=== PATIENT | female | born 1990 | race Caucasian/White ===

== ENCOUNTER 2017-10-09 18:12 | Inpatient (IN) | payer MEDICAID ==
--- NOTE | 2017-10-09 19:36 | ED PDOC ---
Arrival/HPI - General Chief Complaint: Breast Problem Time Seen by Provider: 10/09/17 19:33 Historian: Patient, Parent - History of Present Illness Narrative History of Present Illness (Text): 10/09/17 19:36 This 27 yo female who denies pmh presents to this ED c/o right breast infection x 3 days. Patient stated that nipple piercing area got infected. Patient stated infection got worse, so she saw her PMD 2 days ago. Patient was prescribed Clindamycin, which she has been taking as instructed. Patient stated pain worsen today. Denies other complains. Time/Duration: Other (see hpi) Quality: Aching Context: Home Past Medical History - Provider Review Nursing Documentation Reviewed: Yes - Cardiac Hx Cardiac Disorders: No - Pulmonary Hx Respiratory Disorders: No - Neurological Hx Neurological Disorder: No - HEENT Hx HEENT Disorder: No - Renal Hx Renal Disorder: No - Endocrine/Metabolic Hx Endocrine Disorders: No - Hematological/Oncological Hx Blood Disorders: No - Integumentary Hx Dermatological Disorder: Yes Other/Comment: ABSCESS - Musculoskeletal/Rheumatological Hx Musculoskeletal Disorders: No - Gastrointestinal Hx Gastrointestinal Disorders: No - Genitourinary/Gynecological Hx Genitourinary Disorders: No - Psychiatric Hx Psychophysiologic Disorder: No Hx Substance Use: No - Anesthesia Hx Anesthesia: No Family/Social History - Physician Review Nursing Documentation Reviewed: Yes Family/Social History: Other (noncontributory) Smoking Status: Never Smoked Hx Alcohol Use: Yes Frequency of alcohol use: Socially Hx Substance Use: No Allergies/Home Meds Allergies/Adverse Reactions: Allergies No Known Allergies Allergy (Verified 10/09/17 18:59) Home Medications: Home Meds Medication Instructions Recorded Confirmed Clindamycin [Cleocin] 300 mg PO Q6 10/09/17 10/09/17 traMADol/Acetaminophen [Ultracet 1 tab PO Q6 PRN 10/09/17 10/09/17 37.5/325 mg] Review of Systems - Review of Systems Constitutional: Normal. absent: Fatigue, Weight Change, Fevers, Night Sweats Eyes: Normal ENT: Normal Respiratory: Normal Cardiovascular: Normal Gastrointestinal: Normal Genitourinary Female: Normal Musculoskeletal: Normal Skin: Abscess (right breast/nipple infection) Neurological: Normal Endocrine: Normal Hemo/Lymphatic: Normal Psychiatric: Normal Physical Exam Vital Signs Temp Pulse Resp BP Pulse Ox 10/09/17 20:22 98 H 18 131/87 98 10/09/17 19:01 99.6 F 109 H 16 130/86 98 Temperature: Afebrile Blood Pressure: Normal Pulse: Regular Respiratory Rate: Normal Appearance: Positive for: Well-Appearing, Non-Toxic, Comfortable Pain Distress: None Mental Status: Positive for: Alert and Oriented X 3 - Systems Exam Head: Present: Atraumatic, Normocephalic Pupils: Present: PERRL Extroacular Muscles: Present: EOMI Conjunctiva: Present: Normal Mouth: Present: Moist Mucous Membranes Neck: Present: Normal Range of Motion Respiratory/Chest: Present: Clear to Auscultation, Good Air Exchange. No: Respiratory Distress, Accessory Muscle Use, Wheezes Cardiovascular: Present: Regular Rate and Rhythm, Normal S1, S2. 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 No: Axillary Lymphad Back: Present: Normal Inspection Upper Extremity: Present: Normal Inspection, Normal ROM Lower Extremity: Present: Normal Inspection, Normal ROM Neurological: Present: GCS=15, CN II-XII Intact, Speech Normal Skin: Present: Warm, Dry, Normal Color. No: Rashes Psychiatric: Present: Alert, Oriented x 3, Normal Insight, Normal Concentration Medical Decision Making ED Course and Treatment: 10/09/17 20:[address] Liz szymanski physician and medical staff physician regrading patient with breast abscess, and cellulitis. He agreed with plan for admission on [facility] 10/09/17 20:44 Patient agreed with plan for admission to this hospital . Re-evaluation Time: 20:45 Reassessment Condition: Re-examined, Improving,but remains with symptoms - Lab Interpretations Lab Results: 10/09/17 20:05 10/09/17 20:05 Lab Results 10/09/17 20:05: Urine Color Yellow, Urine Appearance Clear, Urine pH 6.0, Ur Specific [place] 1.020, Urine Protein Negative, Urine Glucose (UA) Negative, Urine Ketones Negative, Urine Blood Trace-intact H, Urine Nitrate Negative, Urine Bilirubin Negative, Urine Urobilinogen 0.2, Ur Leukocyte Esterase Negative , Urine RBC 0 - 2, Urine WBC Negative, Ur Epithelial Cells None, Urine Bacteria Small, Urine HCG, Qual Negative 10/09/17 20:05: pO2 34, VBG pH 7.35, VBG pCO2 55.0, VBG HCO3 30.4 H, VBG Total CO2 32.1 H, VBG O2 Sat (Calc) 70.1 H, VBG Base Excess 3.4 H, VBG Potassium 4.3, Sodium 135.0, Chloride 101.0, Glucose 105, Lactate 0.7, FiO2 21.0, Venous Blood Potassium 4.3 10/09/17 20:05: PT 12.0, INR 1.05, APTT 32.2 10/09/17 20:05: Sodium 137, Chloride 97 L, Potassium 4.2, Carbon Dioxide 28, Anion Gap 16, BUN 12, Creatinine 0.7, Est GFR ( Amer) > 60, Est GFR (Non- Af Amer) > 60, Random Glucose 108, Calcium 9.6, Phosphorus 3.8, Magnesium 2.0, Total Bilirubin 0.3, AST 30, ALT 37, Alkaline Phosphatase 83, Total Protein 8.3 , Albumin 4.4, Globulin 3.9, Albumin/Globulin Ratio 1.1 10/09/17 20:05: WBC 12.0 H, RBC 4.25, Hgb 13.2, Hct 39.3, MCV 92.5, MCH 31.1, MCHC 33.6, RDW 12.7, Plt Count 240, MPV 11.0, Gran % 77.4 H, Lymph % (Auto) 15.9 L, Rice % (Auto) 5.7, Eos % (Auto) 0.8 L, Baso % (Auto) 0.2, Gran # 9.29 H , Lymph # (Auto) 1.9, Rice # (Auto) 0.7 H, Eos # (Auto) 0.1, Baso # (Auto) 0.02 , ESR Pending I have reviewed the lab results: Yes Interpretation: Abnormal lab values - RAD Interpretation Narrative RAD Interpretations (Text): 10/09/17 20:45 Chest x-rays: NAD. No FB Radiology Orders: 10/09/17 19:33 CHEST TWO VIEWS (PA/LAT) [RAD] Stat - Medication Orders Current Medication Orders: Vancomycin HCl (Vancomycin 1gm) 1 gm in 250 mls @ 167 mls/hr IVPB STAT STA PRN Reason: Protocol Stop: 10/09/17 21:08 Discontinued Medications Sodium Chloride (Sodium Chloride 0.9%) 1,000 mls @ 999 mls/hr IV .Q1H1M STA Stop: 10/09/17 20:39 Piperacillin Sod/Tazobactam Sod (Zosyn 3.375 In Ns 100ml) 100 mls @ 200 mls/hr IVPB STAT STA PRN Reason: Protocol Stop: 10/09/17 20:12 Morphine Sulfate (Morphine) 2 mg IVP STAT STA Stop: 10/09/17 19:47 Ondansetron HCl (Zofran Inj) 4 mg IVP STAT STA Stop: 10/09/17 19:45 Disposition/Present on Arrival - Present on Arrival Any Indicators Present on Arrival: No History of DVT/PE: No History of Uncontrolled Diabetes: No Urinary Catheter: No History of Decub. Ulcer: No History Surgical Site Infection Following: None - Disposition Have Diagnosis and Disposition been Completed?: Yes Diagnosis: Breast abscess of female, Cellulitis of right breast Disposition: HOSPITALIZED Disposition Time: 20:46 Patient Plan: Admission Discharge Instructions (ExitCare): Cellulitis (ED) Referrals: Jessica Mendoza DO [Primary Care Provider] - Follow up with primary Forms: [employer] (Emirati)
[2017-10-09] MEDS ORDERED: Vancomycin 1gm in NS 250ml 1 GM/250 ML BAG IVPB STA (19:39)
[2017-10-09] MEDS ORDERED: Sodium Chloride 0.9% 1,000 ML IV STA (19:39)
[2017-10-09] MEDS ORDERED: Piperacillin/Tazobact 3.375 gm 100 ML IVPB STA (19:43)
[2017-10-09] MEDS ORDERED: Morphine 2 mg/ml ISec IVP STA (19:43)
[2017-10-09] MEDS ORDERED: Morphine 4 mg/ml ISec IVP STA (19:46)
[2017-10-09 20:28] LABS: VENOUS BLOOD GAS BASE EXCESS 3.4 mmol/L (0.0-2.0); VENOUS BLOOD GAS PO2 34 mm/Hg (30-55); VENOUS BLOOD PH 7.35 (7.32-7.43)
[2017-10-09 20:30] LABS: URINE BILIRUBIN NEGATIVE (NEGATIVE); URINE BLOOD TRACE-INTACT (NEGATIVE); URINE GLUCOSE (UA) NEGATIVE (NEGATIVE); URINE LEUKOCYTE ESTERASE NEGATIVE Leu/uL (NEGATIVE); URINE PROTEIN NEGATIVE mg/dL (<30 mg/dL); URINE UROBILINOGEN 0.2 E.U./dL (<1 E.U./dL)
[2017-10-09 20:31] LABS: BASO # 0.02 K/mm3 (0.0-2.0); BASO % 0.2 % (0.0-3.0); EOS # 0.1 (0.0-0.7); EOS % 0.8 % (1.5-5.0); GRAN # 9.29 (1.4-6.5); GRAN % 77.4 % (50.0-68.0); HEMOGLOBIN 13.2 g/dL (12.0-16.0); LYMPH # 1.9 (1.2-3.4); LYMPH % 15.9 % (22.0-35.0); MEAN CELL VOLUME 92.5 fl (80.0-105.0); MEAN CORPUSCULAR HEMOGLOBIN 31.1 pg (25.0-35.0); MEAN CORPUSCULAR HGB CONC 33.6 g/dl (31.0-37.0); MONO # 0.7 (0.1-0.6); MONO % 5.7 % (1.0-6.0); RBC 4.25 10^6/uL (3.5-6.1); RED CELL DISTRIBUTION WIDTH 12.7 % (11.5-14.5)
[2017-10-09 20:32] LABS: URINE APPEARANCE CLEAR (CLEAR); URINE COLOR YELLOW (YELLOW)
[2017-10-09 20:33] LABS: HCG,QUALITATIVE URINE NEGATIVE (NEGATIVE)
[2017-10-09 20:40] LABS: ALB/GLOB RATIO 1.1 (1.1-1.8); ALBUMIN 4.4 g/dL (3.0-4.8); ALT/SGPT 37 U/L (7-56); AST/SGOT 30 U/L (14-36); BLOOD UREA NITROGEN 12 mg/dL (7-21); CALCIUM 9.6 mg/dL (8.4-10.5); GFR AFRICAN-AMERICAN > 60; GFR NON-AFRICAN AMERICAN > 60
[2017-10-09 20:41] LABS: URINE BACTERIA SMALL (NEG); URINE RBC 0 - 2 /hpf (0-2); URINE WBC NEGATIVE /hpf (0-6)
[2017-10-09 20:43] LABS: INR 1.05 (0.93-1.08); PARTIAL THROMBOPLASTIN TIME 32.2 Seconds (25.1-36.5)
[2017-10-09] MEDS ORDERED: Lidocaine 1% Inj (20ml) ONE (20:43)
--- NOTE | 2017-10-09 21:30 | CP.PCM.CON ---
History of Present Illness - History of Present Illness History of Present Illness: Surgery 27 y/o F w/ no sig PMH came with redness, swelling and pain on her R breast that started last week. She saw her PMD and got PO ABX prescribed. Pain is localized around the areolar area. Redness is concentric from areolar. Symptoms gotten worse. She had b/l nipple rings for a few years. No changes on her L breast. She has the nipple rings taken out since the pain started. Denies Fever , chills, nausea, vomiting, diarrhea, chest pain, SOB, trauma, breast feeding, skin dimpling, nipple inversion, lymphadenopathy, recent travels, drainage. In ED, wound started to drain purulent fluids from the wound. 100cc purulent fluids were expressed. Patient consented for I &D of the R breast to express the remainder of the abscess and to keep the wound open. PMH: none PSH: none Meds: none Procedures Consent obtained from patient and family. Witnessed by nursing staff. 1mg Dilaudid given. Time out performed. R breast nipple Area cleaned with betadine. Sterile drape applied. 1% lidocaine injected in the field. 1cm incision made with 10 blade. expressed 50cc abscess. Packed with 1/2 iodoform packing. Culture sent. area cleaned and irrigated with NS. Sterile dressing applied. Pt tolerated procedure well. Pre-op dx: R breast abscess Procedure: Incision and drainage of R breast abscess Post op dx: Same Review of Systems - Review of Systems Review of Systems: See HPI Past Patient History - Past Social History Smoking Status: Never Smoked - CARDIAC Hx Cardiac Disorders: No - PULMONARY Hx Respiratory Disorders: No - NEUROLOGICAL Hx Neurological Disorder: No - HEENT Hx HEENT Problems: No - RENAL Hx Chronic Kidney Disease: No - ENDOCRINE/METABOLIC Hx Endocrine Disorders: No - HEMATOLOGICAL/ONCOLOGICAL Hx Blood Disorders: No - INTEGUMENTARY Hx Dermatological Problems: Yes Other/Comment: ABSCESS - MUSCULOSKELETAL/RHEUMATOLOGICAL Hx Musculoskeletal Disorders: No - GASTROINTESTINAL Hx Gastrointestinal Disorders: No - GENITOURINARY/GYNECOLOGICAL Hx Genitourinary Disorders: No - PSYCHIATRIC Hx Psychophysiologic Disorder: No Hx Substance Use: No - SURGICAL HISTORY Hx Surgeries: No - ANESTHESIA Hx Anesthesia: No Meds Allergies/Adverse Reactions: Allergies Allergy/AdvReac Type Severity Reaction Status Date / Time No Known Allergies Allergy Verified 10/09/17 18:59 Physical Exam - Constitutional Appears: No Acute Distress - Head Exam Head Exam: ATRAUMATIC, NORMAL INSPECTION, NORMOCEPHALIC - Eye Exam Eye Exam: EOMI, Normal appearance, PERRL Pupil Exam: NORMAL ACCOMODATION, PERRL - ENT Exam ENT Exam: Mucous Membranes Moist, Normal Exam - Neck Exam Neck exam: Positive for: Normal Inspection - Respiratory Exam Respiratory Exam: Clear to Auscultation Bilateral, NORMAL BREATHING PATTERN - Cardiovascular Exam Cardiovascular Exam: REGULAR RHYTHM - GI/Abdominal Exam GI & Abdominal Exam: Normal Bowel Sounds, Soft. absent: Tenderness - Extremities Exam Extremities exam: Positive for: full ROM, normal inspection - Back Exam Back exam: NORMAL INSPECTION - Neurological Exam Neurological exam: Alert, CN II-XII Intact, Normal Gait, Oriented x3, Reflexes Normal - Psychiatric Exam Psychiatric exam: Normal Affect, Normal Mood - Skin Skin Exam: Dry, Erythema, Warm - Expanded Skin Exam Expanded Type of lesion: Abscess Distribution of rash: Chest Description of Rash: Discharge, Erythematous, Swelling, Tenderness - Additional Findings Additional findings: R breast: [id number] erythema around the areola. areola [id number]. fluctuant. TTP. NO skin dimpling. No nipple retraction or inversion. Results - Vital Signs Recent Vital Signs: Last Vital Signs Temp 99.6 F 10/09/17 19:01 Pulse 98 H 10/09/17 20:22 Resp 18 10/09/17 20:22 BP 131/87 10/09/17 20:22 Pulse Ox 98 10/09/17 20:22 - Labs Result Diagrams: 10/09/17 20:05 10/09/17 20:05 Assessment & Plan - Assessment and Plan (Free Text) Assessment: POD 0 s/p incision and drainage of R breast for R breast abscess -ABX -f/u cx -f/u at Dr. Ramos's office in 1 week -OK to take shower. Will DW Dr. Ramos
--- NOTE | 2017-10-09 22:21 | CP.PCM.HP ---
History of Present Illness - History of Present Illness History of Present Illness: Arina Barrera, PGY1, H&P for Dr Hill: CC: right breast infection 27 yo female with no PMH, presents for right breast infection and left breast pain for past 3-4 days. On Sunday, pt had her bilateral nipples pierced. She then started feeling pain, with some discharge coming out of right breast. On Sunday, pt went to [facility], where some pus was drained out and pt was given Clindamycin and Ultracet. She took the medications. However, pt started having worsening of pain today, requiring her to come to ED. Denies fever, chills, nausea, vomiting, diarrhea, chest pain, SOB, trauma, breast feeding, skin dimpling, nipple inversion, lymphadenopathy, recent travels. In ED, pt afebrile with other vitals stable. 100cc purulent fluids were expressed from right breast, pt then had I&D done at bedside by surgery. 12 point ROS obtained and negative, except as per HPI. PMH: none PSH: none ALL: NKA Meds: none FH: DM SH: lives with parents. 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 Drinks etoh 2 drinks/day - beers/ wine for past 5 months. Denies tobacco/illicit drug use. Present on Admission - Present on Admission Any Indicators Present on Admission: No History of DVT/PE: No History of Uncontrolled Diabetes: No Urinary Catheter: No Decubitus Ulcer Present: No Review of Systems - Review of Systems All systems: reviewed and no additional remarkable complaints except Review of Systems: as per HPI Past Patient History - Past Social History Smoking Status: Never Smoked - CARDIAC Hx Cardiac Disorders: No - PULMONARY Hx Respiratory Disorders: No - NEUROLOGICAL Hx Neurological Disorder: No - HEENT Hx HEENT Problems: No - RENAL Hx Chronic Kidney Disease: No - ENDOCRINE/METABOLIC Hx Endocrine Disorders: No - HEMATOLOGICAL/ONCOLOGICAL Hx Blood Disorders: No - INTEGUMENTARY Hx Dermatological Problems: Yes Other/Comment: ABSCESS - MUSCULOSKELETAL/RHEUMATOLOGICAL Hx Musculoskeletal Disorders: No - GASTROINTESTINAL Hx Gastrointestinal Disorders: No - GENITOURINARY/GYNECOLOGICAL Hx Genitourinary Disorders: No - PSYCHIATRIC Hx Psychophysiologic Disorder: No Hx Substance Use: No - SURGICAL HISTORY Hx Surgeries: No - ANESTHESIA Hx Anesthesia: No Meds Allergies/Adverse Reactions: Allergies Allergy/AdvReac Type Severity Reaction Status Date / Time No Known Allergies Allergy Verified 10/09/17 18:59 Physical Exam - Constitutional Appears: Non-toxic, In Acute Distress - Head Exam Head Exam: ATRAUMATIC, NORMOCEPHALIC - Eye Exam Eye Exam: EOMI, PERRL. absent: Conjunctival injection, Nystagmus, Scleral icterus Pupil Exam: NORMAL ACCOMODATION, PERRL. absent: Fixed, Irregular, Unequal - ENT Exam ENT Exam: Mucous Membranes Moist - Neck Exam Neck exam: Positive for: Full Rom - Respiratory Exam Respiratory Exam: Clear to Auscultation Bilateral, NORMAL BREATHING PATTERN. absent: Accessory Muscle Use, Rhonchi, Wheezes, Stridor - Cardiovascular Exam Cardiovascular Exam: RRR, +S1, +S2. absent: Systolic Murmur - GI/Abdominal Exam GI & Abdominal Exam: Normal Bowel Sounds, Soft. absent: Distended, Firm, Guarding, Rebound, Rigid, Tenderness - Extremities Exam Extremities exam: Positive for: normal inspection. Negative for: calf tenderness, pedal edema - Back Exam Back exam: NORMAL INSPECTION - Neurological Exam Neurological exam: Alert, Oriented x3 - Psychiatric Exam Psychiatric exam: Normal Affect, Normal Mood - Skin Additional comments: Breasts: R breast: [id number] erythema around the areola. areola [id number]. fluctuant. TTP. NO skin dimpling. No nipple retraction or inversion. Covered in dressing as per surgery. Left breast: + tenderness, warmth, erythema noted. No fluctuance/discharge appreciated. Results - Vital Signs Recent Vital Signs: Last Vital Signs Temp 99.6 F 10/09/17 19:01 Pulse 98 H 10/09/17 20:22 Resp 18 10/09/17 20:22 BP 131/87 10/09/17 20:22 Pulse Ox 98 10/09/17 20:22 - Labs Result Diagrams: 10/09/17 20:05 10/09/17 20:05 Assessment & Plan - Assessment and Plan (Free Text) Assessment: 27 year old female with no PMH, presents for R breast abscess s/p I&D, and left nipple/breast cellulitis: Right breast abscess s/p I&D and left breast cellulitis: 2/2 nipple ring - Percocent prn severe pain, toradol prn moderate pain - IV abx - Vanco and Zosyn - Follow up wound, blood cultures - Surgery consulted. Appreciate recs. - procal - mild leukocytosis. daily cbc. monitor PPX: pepcid, scds Discussed with Dr Hill. - Date & Time Date: 10/10/17 Time: 04:06
[2017-10-10] MEDS: Piperacillin/Tazobact 3.375 gm 100 ML IVPB SCH ×2 (02:04→06:59)
[2017-10-10 04:49] VITALS: RESP 20; BMI 27.1
[2017-10-10 07:06] LABS: BASO # 0.02 K/mm3 (0.0-2.0); BASO % 0.2 % (0.0-3.0); EOS # 0.1 (0.0-0.7); EOS % 1.1 % (1.5-5.0); GRAN # 5.76 (1.4-6.5); GRAN % 69.2 % (50.0-68.0); HEMOGLOBIN 12.6 g/dL (12.0-16.0); LYMPH # 1.8 (1.2-3.4); LYMPH % 21.8 % (22.0-35.0); MEAN CELL VOLUME 92.8 fl (80.0-105.0); MEAN CORPUSCULAR HEMOGLOBIN 31.2 pg (25.0-35.0); MEAN CORPUSCULAR HGB CONC 33.6 g/dl (31.0-37.0); MEAN PLATELET VOLUME 11.1 fl (7.0-11.0); MONO # 0.6 (0.1-0.6); MONO % 7.7 % (1.0-6.0); RBC 4.04 10^6/uL (3.5-6.1); RED CELL DISTRIBUTION WIDTH 12.9 % (11.5-14.5); WHITE BLOOD COUNT 8.3 10^3/ul (4.5-11.0)
[2017-10-10] MEDS: Oxycodone/Acetaminophen 5/325 mg Tab PO PRN ×3 (07:07→14:43)
[2017-10-10 07:53] LABS: ALB/GLOB RATIO 1.2 (1.1-1.8); ALBUMIN 3.9 g/dL (3.0-4.8); ALT/SGPT 36 U/L (7-56); AST/SGOT 21 U/L (14-36); BLOOD UREA NITROGEN 11 mg/dL (7-21); CALCIUM 8.8 mg/dL (8.4-10.5); GFR AFRICAN-AMERICAN > 60; GFR NON-AFRICAN AMERICAN > 60
--- NOTE | 2017-10-10 09:14 | RAD ---
HISTORY: right breast pain r/o FB COMPARISON: No prior. TECHNIQUE: Chest PA and lateral FINDINGS: LUNGS: No active pulmonary disease. PLEURA: No significant pleural effusion identified. No pneumothorax apparent. CARDIOVASCULAR: Normal. OSSEOUS STRUCTURES: No significant abnormalities. VISUALIZED UPPER ABDOMEN: Normal. OTHER FINDINGS: None. IMPRESSION: No active disease. Concordant results with the preliminary interpretation rendered by the emergency department physician procedure.
[2017-10-10] MEDS ORDERED: Vancomycin 1gm in NS 250ml 1 GM/250 ML BAG IVPB SCH (10:00)
[2017-10-10] MEDS ORDERED: Oxycodone/Acetaminophen 5/325 mg Tab PO STA (10:41)
--- NOTE | 2017-10-10 11:08 | CP.PCM.PN ---
Subjective - Date & Time of Evaluation Date of Evaluation: 10/10/17 Time of Evaluation: 11:05 - Subjective Subjective: Surgery Progress Note: Pain improved since I&D. Patient reports that she is comfortable changing wound dressing at home. Denies fevers, chills, N/V, or any new skin changes. Objective - Vital Signs/Intake and Output Vital Signs (last 24 hours): Temp Pulse Resp BP Pulse Ox 97.2 F L 77 20 122/81 98 10/10/17 06:00 10/10/17 06:00 10/09/17 21:42 10/09/17 21:42 10/10/17 06:00 Intake and Output: 10/10/17 10/10/17 06:59 18:59 Intake Total 480 Balance 480 - Medications Medications: Current Medications Famotidine (Pepcid) 20 mg PO 1000,2200 [facility] Last Admin: 10/10/17 09:50 Dose: 20 mg Vancomycin HCl (Vancomycin 1gm) 1 gm in 250 mls @ 167 mls/hr IVPB DAILY [facility] PRN Reason: Protocol Last Admin: 10/10/17 09:50 Dose: 167 mls/hr Ketorolac Tromethamine (Toradol) 30 mg IVP Q6H PRN PRN Reason: Pain, moderate (4-7) Ondansetron HCl (Zofran Inj) 4 mg IVP Q6H PRN PRN Reason: Nausea/Vomiting Last Admin: 10/10/17 08:43 Dose: 4 mg Oxycodone/Acetaminophen (Percocet 5/325 Mg Tab) 2 tab PO Q4H PRN PRN Reason: Pain, severe (8-10) Stop: 10/12/17 22:26 Last Admin: 10/10/17 10:35 Dose: 2 tab - Labs Labs: 10/10/17 06:30 10/10/17 06:30 PT 12.0 SECONDS (9.4-12.5) 10/09/17 20:05 INR 1.05 (0.93-1.08) 10/09/17 20:05 APTT 32.2 Seconds (25.1-36.5) 10/09/17 20:05 - Constitutional Appears: Non-toxic, No Acute Distress - Head Exam Head Exam: ATRAUMATIC, NORMOCEPHALIC - Eye Exam Eye Exam: Normal appearance - Neck Exam Neck Exam: Full ROM - Respiratory Exam Respiratory Exam: NORMAL BREATHING PATTERN. absent: Accessory Muscle Use, Respiratory Distress - Psychiatric Exam Psychiatric exam: Normal Affect, Normal Mood - Skin Skin Exam: Dry, Warm Additional comments: Right areola TTP and with opening from I&D; Interval improvement noted with no erythema, fluctuance or induration Assessment and Plan - Assessment and Plan (Free Text) Assessment: POD 1 s/p I&D of R breast for R breast abscess Plan: -Recommend completion of full course of antibiotics -Wound care instructions and supplies provided at bedside -Instructed to f/u at Dr. Ramos's office in 1 week -Clear for discharge from surgical standpoint Discussed with Dr. Ramos
--- NOTE | 2017-10-10 14:31 | CP.PCM.DIS ---
<James Taveras - Last Filed: 10/10/17 14:25> Provider - Provider Date of Admission: 10/09/17 20:40 Attending physician: Sam Reynolds MD Primary care physician: Jessica Mendoza DO Consults: General Surgery: Dr. Villa Time Spent in preparation of Discharge (in minutes): 35 Diagnosis - Discharge Diagnosis (1) Breast abscess of female Status: Acute (2) Cellulitis of right breast Status: Acute Hospital Course - Lab Results Lab Results: Most Recent Lab Values WBC 8.3 10^3/ul (4.5-11.0) D 10/10/17 06:30 RBC 4.04 10^6/uL (3.5-6.1) 10/10/17 06:30 Hgb 12.6 g/dL (12.0-16.0) 10/10/17 06:30 Hct 37.5 % (36.0-48.0) 10/10/17 06:30 MCV 92.8 fl (80.0-105.0) 10/10/17 06:30 MCH 31.2 pg (25.0-35.0) 10/10/17 06:30 MCHC 33.6 g/dl (31.0-37.0) 10/10/17 06:30 RDW 12.9 % (11.5-14.5) 10/10/17 06:30 Plt Count 224 10^3/uL (120.0-450.0) 10/10/17 06:30 MPV 11.1 fl (7.0-11.0) H 10/10/17 06:30 Gran % 69.2 % (50.0-68.0) H 10/10/17 06:30 Lymph % (Auto) 21.8 % (22.0-35.0) L 10/10/17 06:30 [place] % (Auto) 7.7 % (1.0-6.0) H 10/10/17 06:30 Eos % (Auto) 1.1 % (1.5-5.0) L 10/10/17 06:30 Baso % (Auto) 0.2 % (0.0-3.0) 10/10/17 06:30 Gran # 5.76 (1.4-6.5) 10/10/17 06:30 Lymph # (Auto) 1.8 (1.2-3.4) 10/10/17 06:30 Campbell # (Auto) 0.6 (0.1-0.6) 10/10/17 06:30 Eos # (Auto) 0.1 (0.0-0.7) 10/10/17 06:30 Baso # (Auto) 0.02 K/mm3 (0.0-2.0) 10/10/17 06:30 ESR 42 mm/hr (0.0-20.0) H 10/09/17 20:05 PT 12.0 SECONDS (9.4-12.5) 10/09/17 20:05 INR 1.05 (0.93-1.08) 10/09/17 20:05 APTT 32.2 Seconds (25.1-36.5) 10/09/17 20:05 pO2 34 mm/Hg (30-55) 10/09/17 20:05 VBG pH 7.35 (7.32-7.43) 10/09/17 20:05 VBG pCO2 55.0 (40-60) 10/09/17 20:05 VBG HCO3 30.4 mmol/l (21-28) H 10/09/17 20:05 VBG Total CO2 32.1 mmol.L (22-28) H 10/09/17 20:05 VBG O2 Sat (Calc) 70.1 % (40-65) H 10/09/17 20:05 VBG Base Excess 3.4 mmol/L (0.0-2.0) H 10/09/17 20:05 VBG Potassium 4.3 mmol/L (3.6-5.2) 10/09/17 20:05 Sodium 135.0 mmol/L (132-148) 10/09/17 20:05 Chloride 101.0 mmol/L (98-107) 10/09/17 20:05 Glucose 105 mg/dl (65-105) 10/09/17 20:05 Lactate 0.7 mmol/L (0.7-2.1) 10/09/17 20:05 FiO2 21.0 % 10/09/17 20:05 Sodium 140 mmol/L (132-148) 10/10/17 06:30 Potassium 3.8 mmol/L (3.6-5.0) 10/10/17 06:30 Chloride 103 mmol/L (98-107) 10/10/17 06:30 Carbon Dioxide 26 mmol/L (21-33) 10/10/17 06:30 Anion Gap 15 (10-20) 10/10/17 06:30 BUN 11 mg/dL (7-21) 10/10/17 06:30 Creatinine 0.7 mg/dl (0.7-1.2) 10/10/17 06:30 Est GFR ( Amer) > 60 10/10/17 06:30 Est GFR (Non-Af Amer) > 60 10/10/17 06:30 Random Glucose 102 mg/dL (70-110) 10/10/17 06:30 Hemoglobin A1c 5.6 % (4.2-6.5) 10/10/17 06:30 Calcium 8.8 mg/dL (8.4-10.5) 10/10/17 06:30 Phosphorus 3.8 mg/dL (2.5-4.5) 10/09/17 20:05 Magnesium 2.0 mg/dL (1.7-2.2) 10/09/17 20:05 Total Bilirubin 0.3 mg/dL (0.2-1.3) 10/10/17 06:30 AST 21 U/L (14-36) 10/10/17 06:30 ALT 36 U/L (7-56) 10/10/17 06:30 Alkaline Phosphatase 64 U/L (38-126) 10/10/17 06:30 Total Protein 7.1 g/dL (5.8-8.3) 10/10/17 06:30 Albumin 3.9 g/dL (3.0-4.8) 10/10/17 06:30 Globulin 3.3 gm/dL 10/10/17 06:30 Albumin/Globulin Ratio 1.2 (1.1-1.8) 10/10/17 06:30 Venous Blood Potassium 4.3 mmol/L (3.6-5.2) 10/09/17 20:05 Urine Color Yellow (YELLOW) 10/09/17 20:05 Urine Appearance Clear (CLEAR) 10/09/17 20:05 Urine pH 6.0 (4.7-8.0) 10/09/17 20:05 Ur Specific [place] 1.020 (1.005-1.035) 10/09/17 20:05 Urine Protein Negative mg/dL (<30 mg/dL) 10/09/17 20:05 Urine Glucose (UA) Negative mg/dL (NEGATIVE) 10/09/17 20:05 Urine Ketones Negative mg/dL (NEGATIVE) 10/09/17 20:05 Urine Blood Trace-intact (NEGATIVE) H 10/09/17 20:05 Urine Nitrate Negative (NEGATIVE) 10/09/17 20:05 Urine Bilirubin Negative (NEGATIVE) 10/09/17 20:05 Urine Urobilinogen 0.2 E.U./dL (<1 E.U./dL) 10/09/17 20:05 Ur Leukocyte Esterase Negative Alan/uL (NEGATIVE) 10/09/17 20:05 Urine RBC 0 - 2 /hpf (0-2) 10/09/17 20:05 Urine WBC Negative /hpf (0-6) 10/09/17 20:05 Ur Epithelial Cells None /hpf (0-5) 10/09/17 20:05 Urine Bacteria Small (NEG) 10/09/17 20:05 Urine HCG, Qual Negative (NEGATIVE) 10/09/17 20:05 - Hospital Course Hospital Course: Patient is a 27 year old female with no significant past medical history that presented to [facility] for right sided breast abscess with previous incision and drainage performed a few days prior to presentation, leukocytosis and afebrile. While in ED general surgery was consulted and performed incision and drainage of 100cc of purulent fluid from wound. Packing was placed and patient was observed overnight. Patient reported continued improvement in her symptoms. Of note patient had previous nipple piercings bilaterally that had been removed at beginning of presenting symptoms few days prior. Patient was instructed by General surgery team regarding appropriate wound care and importance of follow up with Dr. Garcia. Patient was evaluated to be hemodynamically stable with no leukocytosis and afebrile and discharged home with antibiotics and instructed to follow up with general surgery and primary care physician. Patient was in understanding. - Date & Time of H&P Date of H&P: 10/10/17 Time of H&P: 03:50 Discharge Exam - Head Exam Head Exam: ATRAUMATIC, NORMOCEPHALIC - Eye Exam Eye Exam: EOMI, PERRL - ENT Exam ENT Exam: Mucous Membranes Moist - Neck Exam Neck exam: Full Rom - Respiratory Exam Respiratory Exam: Clear to PA & Lateral, NORMAL BREATHING PATTERN, UNREMARKABLE. absent: Rales, Rhonchi, Wheezes - Cardiovascular Exam Cardiovascular Exam: REGULAR RHYTHM, +S1, +S2 - GI/Abdominal Exam GI & Abdominal Exam: Normal Bowel Sounds, Soft. absent: Tenderness - Extremities Exam Extremities exam: normal inspection, pedal pulses present - Neurological Exam Neurological exam: Alert, CN II-XII Intact, Normal Gait, Oriented x3 - Psychiatric Exam Psychiatric exam: Normal Affect, Normal Mood - Skin Additional comments: R breast: erythema surrounding right areola, incision and drainage present with iodine packing in place, surgical dressing showing partial blood spotting. areola [id number]. fluctuant. TTP. NO skin dimpling. No nipple retraction or inversion. Discharge Plan - Discharge Medications Prescriptions: Clindamycin [Cleocin] 300 mg PO Q6 #24 cap - Follow Up Plan Condition: GOOD Disposition: HOME/ ROUTINE Instructions: Skin Abscess, Abscess Incision and Drainage, Wound Care (DC), Cellulitis (Skin Infection), Adult (DC), Abscess Drainage, Percutaneous (DC), Breast Abscess Drainage (DC), Cellulitis (DC), Cellulitis (GEN), Abscess (GEN) Additional Instructions: - Follow up with primary medical doctor with in one to two weeks upon discharge - Follow up with Surgeon Dr. Celeste in his office within the next week - Adhere to wound care as instructed by surgery - Take medications as prescribed to you - IF you begin to experience worsening of your presenting symptoms please go to nearest ED Wound care Daily dressing change pack with Iodofoam, place two 4x4 gauze with tape. Referrals: Jessica Mendoza DO [Primary Care Provider] - <Sam Reynolds - Last Filed: 10/10/17 15:02> Provider - Provider Date of Admission: 10/09/17 20:40 Attending physician: Sam Reynolds MD Primary care physician: Jessica Mendoza DO Hospital Course - Lab Results Lab Results: Most Recent Lab Values WBC 8.3 10^3/ul (4.5-11.0) D 10/10/17 06:30 RBC 4.04 10^6/uL (3.5-6.1) 10/10/17 06:30 Hgb 12.6 g/dL (12.0-16.0) 10/10/17 06:30 Hct 37.5 % (36.0-48.0) 10/10/17 06:30 MCV 92.8 fl (80.0-105.0) 10/10/17 06:30 MCH 31.2 pg (25.0-35.0) 10/10/17 06:30 MCHC 33.6 g/dl (31.0-37.0) 10/10/17 06:30 RDW 12.9 % (11.5-14.5) 10/10/17 06:30 Plt Count 224 10^3/uL (120.0-450.0) 10/10/17 06:30 MPV 11.1 fl (7.0-11.0) H 10/10/17 06:30 Gran % 69.2 % (50.0-68.0) H 10/10/17 06:30 Lymph % (Auto) 21.8 % (22.0-35.0) L 10/10/17 06:30 Campbell % (Auto) 7.7 % (1.0-6.0) H 10/10/17 06:30 Eos % (Auto) 1.1 % (1.5-5.0) L 10/10/17 06:30 Baso % (Auto) 0.2 % (0.0-3.0) 10/10/17 06:30 Gran # 5.76 (1.4-6.5) 10/10/17 06:30 Lymph # (Auto) 1.8 (1.2-3.4) 10/10/17 06:30 Campbell # (Auto) 0.6 (0.1-0.6) 10/10/17 06:30 Eos # (Auto) 0.1 (0.0-0.7) 10/10/17 06:30 Baso # (Auto) 0.02 K/mm3 (0.0-2.0) 10/10/17 06:30 ESR 42 mm/hr (0.0-20.0) H 10/09/17 20:05 PT 12.0 SECONDS (9.4-12.5) 10/09/17 20:05 INR 1.05 (0.93-1.08) 10/09/17 20:05 APTT 32.2 Seconds (25.1-36.5) 10/09/17 20:05 pO2 34 mm/Hg (30-55) 10/09/17 20:05 VBG pH 7.35 (7.32-7.43) 10/09/17 20:05 VBG pCO2 55.0 (40-60) 10/09/17 20:05 VBG HCO3 30.4 mmol/l (21-28) H 10/09/17 20:05 VBG Total CO2 32.1 mmol.L (22-28) H 10/09/17 20:05 VBG O2 Sat (Calc) 70.1 % (40-65) H 10/09/17 20:05 VBG Base Excess 3.4 mmol/L (0.0-2.0) H 10/09/17 20:05 VBG Potassium 4.3 mmol/L (3.6-5.2) 10/09/17 20:05 Sodium 135.0 mmol/L (132-148) 10/09/17 20:05 Chloride 101.0 mmol/L (98-107) 10/09/17 20:05 Glucose 105 mg/dl (65-105) 10/09/17 20:05 Lactate 0.7 mmol/L (0.7-2.1) 10/09/17 20:05 FiO2 21.0 % 10/09/17 20:05 Sodium 140 mmol/L (132-148) 10/10/17 06:30 Potassium 3.8 mmol/L (3.6-5.0) 10/10/17 06:30 Chloride 103 mmol/L (98-107) 10/10/17 06:30 Carbon Dioxide 26 mmol/L (21-33) 10/10/17 06:30 Anion Gap 15 (10-20) 10/10/17 06:30 BUN 11 mg/dL (7-21) 10/10/17 06:30 Creatinine 0.7 mg/dl (0.7-1.2) 10/10/17 06:30 Est GFR ( Amer) > 60 10/10/17 06:30 Est GFR (Non-Af Amer) > 60 10/10/17 06:30 Random Glucose 102 mg/dL (70-110) 10/10/17 06:30 Hemoglobin A1c 5.6 % (4.2-6.5) 10/10/17 06:30 Calcium 8.8 mg/dL (8.4-10.5) 10/10/17 06:30 Phosphorus 3.8 mg/dL (2.5-4.5) 10/09/17 20:05 Magnesium 2.0 mg/dL (1.7-2.2) 10/09/17 20:05 Total Bilirubin 0.3 mg/dL (0.2-1.3) 10/10/17 06:30 AST 21 U/L (14-36) 10/10/17 06:30 ALT 36 U/L (7-56) 10/10/17 06:30 Alkaline Phosphatase 64 U/L (38-126) 10/10/17 06:30 Total Protein 7.1 g/dL (5.8-8.3) 10/10/17 06:30 Albumin 3.9 g/dL (3.0-4.8) 10/10/17 06:30 Globulin 3.3 gm/dL 10/10/17 06:30 Albumin/Globulin Ratio 1.2 (1.1-1.8) 10/10/17 06:30 Venous Blood Potassium 4.3 mmol/L (3.6-5.2) 10/09/17 20:05 Urine Color Yellow (YELLOW) 10/09/17 20:05 Urine Appearance Clear (CLEAR) 10/09/17 20:05 Urine pH 6.0 (4.7-8.0) 10/09/17 20:05 Ur Specific [place] 1.020 (1.005-1.035) 10/09/17 20:05 Urine Protein Negative mg/dL (<30 mg/dL) 10/09/17 20:05 Urine Glucose (UA) Negative mg/dL (NEGATIVE) 10/09/17 20:05 Urine Ketones Negative mg/dL (NEGATIVE) 10/09/17 20:05 Urine Blood Trace-intact (NEGATIVE) H 10/09/17 20:05 Urine Nitrate Negative (NEGATIVE) 10/09/17 20: Urine Bilirubin Negative (NEGATIVE) 10/09/17 20: Urine Urobilinogen 0.2 E.U./dL (<1 E.U./dL) 10/09/17 20:05 Ur Leukocyte Esterase Negative Alan/uL (NEGATIVE) 10/09/17 20:05 Urine RBC 0 - 2 /hpf (0-2) 10/09/17 20:05 Urine WBC Negative /hpf (0-6) 10/09/17 20:05 Ur Epithelial Cells None /hpf (0-5) 10/09/17 20:05 Urine Bacteria Small (NEG) 10/09/17 20:05 Urine HCG, Qual Negative (NEGATIVE) 10/09/17 20:05 Attending/Attestation - Attestation I have personally seen and examined this patient.: Yes I have fully participated in the care of the patient.: Yes I have reviewed all pertinent clinical information, including history, physical exam and plan: Yes Notes (Text): 10/10/17 14:59 27 year old female with no significant past medical history who presented with right breast cellulitis and abscess. She was recently seen as outpatient and started on clindamycin and had I&D. She was admitted and started on antibiotics. She was seen by surgery and is s/ p I&D. Patient is discharged home to follow up with her pmd. Follow up with surgery. Continue with po antibiotics. Continue with wound care as discussed with surgery. Sam Reynolds MD Hospitalist.
[2017-10-10 16:07] VITALS: BP 129/81; PULSE 81; TEMP 97.9; O2SAT 100
== END 2017-10-10 16:39 | disposition home or self-care (01) | DRG 276 ==
LOC: ED 18:12 → ERH 20:40 → 5RNO 21:29
PROVIDERS: ADMIT Internal Medicine; ATTEND Internal Medicine
PROC: 0H9TXZZ (ICD-10-PCS; principal; 2017-10-09)
DX: N61.1 Abscess of the breast and nipple (principal); D72.829 Elevated white blood cell count, unspecified; R40.2412 Glasgow coma scale score 13-15, at arrival to emergency department; Z83.3 Family history of diabetes mellitus

== ENCOUNTER 2018-02-12 00:26 | Emergency (ER) | payer MEDICAID ==
--- NOTE | 2018-02-12 00:36 | ED PDOC ---
Arrival/HPI - General Historian: Patient <Filiberto Toure - Last Filed: 02/12/18 02:16> <Giovany Cuadra - Last Filed: 02/12/18 04:34> - General Time Seen by Provider: 02/12/18 00:29 - History of Present Illness Narrative History of Present Illness (Text): 02/12/18 00:36 27 y/o female, no significant pmh, nkda, , LMP 12/12/2017, c/o pelvic cramp and vaginal bleeding x 3 days. Pt. stated that she had positive tests at home, been having lower back pain and vaginal bleeding 3 days ago and today again, passing clot, no pelvic pain but has lower back pain, no fall or trauma, no numbness or tingling, no palpitation, no rash, no dizziness, no other medical or psychological complaints. (Filiberto Toure) Past Medical History - Provider Review Nursing Documentation Reviewed: Yes - Cardiac Hx Cardiac Disorders: No - Pulmonary Hx Respiratory Disorders: No - Neurological Hx Neurological Disorder: No - HEENT Hx HEENT Disorder: No - Renal Hx Renal Disorder: No - Endocrine/Metabolic Hx Endocrine Disorders: No - Hematological/Oncological Hx Blood Disorders: No - Integumentary Hx Dermatological Disorder: Yes Other/Comment: ABSCESS - Musculoskeletal/Rheumatological Hx Musculoskeletal Disorders: No - Gastrointestinal Hx Gastrointestinal Disorders: No - Genitourinary/Gynecological Hx Genitourinary Disorders: No - Psychiatric Hx Psychophysiologic Disorder: No Hx Substance Use: No - Anesthesia Hx Anesthesia: No <Filiberto Toure - Last Filed: 02/12/18 02:16> Family/Social History - Physician Review Nursing Documentation Reviewed: Yes Family/Social History: Unknown Family HX Smoking Status: Never Smoked Hx Alcohol Use: Yes Hx Substance Use: No <Filiberto Toure - Last Filed: 02/12/18 02:16> Allergies/Home Meds <Filiberto Toure - Last Filed: 02/12/18 02:16> <Giovany Cuadra - Last Filed: 02/12/18 04:34> Allergies/Adverse Reactions: Allergies No Known Allergies Allergy (Verified 02/12/18 00:38) Home Medications: Home Meds Medication Instructions Recorded Confirmed No Known Home Med 02/12/18 02/12/18 Review of Systems - Review of Systems Constitutional: absent: Fatigue, Weight Change, Fevers Eyes: absent: Vision Changes ENT: absent: Hearing Changes Respiratory: absent: SOB, Cough Cardiovascular: absent: Chest Pain Gastrointestinal: absent: Abdominal Pain, Diarrhea, Nausea, Vomiting Genitourinary Female: Vaginal Bleeding. absent: Dysuria, Frequency, Vaginal Discharge Musculoskeletal: Back Pain. absent: Arthralgias, Myalgias Skin: absent: Rash, Pruritis Neurological: absent: Headache, Dizziness Psychiatric: absent: Anxiety, Depression, Suicidal Ideation <Filiberto Toure Q - Last Filed: 02/12/18 02:16> Physical Exam Vital Signs Reviewed: Yes Temperature: Afebrile Blood Pressure: Normal Pulse: Regular Respiratory Rate: Normal Appearance: Positive for: Well-Appearing, Non-Toxic, Comfortable Pain Distress: Mild Mental Status: Positive for: Alert and Oriented X 3 - Systems Exam Head: Present: Atraumatic, Normocephalic Pupils: Present: PERRL Extroacular Muscles: Present: EOMI Conjunctiva: Present: Normal Mouth: Present: Moist Mucous Membranes Neck: Present: Normal Range of Motion Respiratory/Chest: Present: Clear to Auscultation, Good Air Exchange. No: Respiratory Distress, Accessory Muscle Use Cardiovascular: Present: Regular Rate and Rhythm, Normal S1, S2. 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 No: Vaginal Discharge, Vaginal Lesions, Adenexal Tenderness, Adenexal Mass, Cervical Motion Tendernes, Cervical os Closed (open), Odor Back: Present: Normal Inspection. No: CVA Tenderness Upper Extremity: Present: Normal Inspection. No: Cyanosis, Edema Lower Extremity: Present: Normal Inspection. No: Edema Neurological: Present: GCS=15, CN II-XII Intact, Speech Normal Skin: Present: Warm, Dry, Normal Color. No: Rashes Psychiatric: Present: Alert, Oriented x 3, Normal Insight, Normal Concentration <Filiberto Toure Q - Last Filed: 02/12/18 02:16> Vital Signs Temp Pulse Resp BP Pulse Ox 02/12/18 00:46 98.5 F 94 H 16 133/82 98 02/12/18 00:45 98.5 F 94 H 16 133/82 98 Medical Decision Making <Filiberto Toure - Last Filed: 02/12/18 02:16> <Giovany Cuadra - Last Filed: 02/12/18 04:34> ED Course and Treatment: 02/12/18 00:55 Differential: threatened vs. UTI vs. Dehydration vs. myalgia -labs/ua/type and screen -transvaginal sonogram -IVF/tylenol -Observe and reassess 02/12/18 02:12 -Beta hcg is 7485 with no previous comparison -Labs are non-significant -UA ordered and pending result -Sonogram performed and pending result. -Case discussed and endorsed to the incoming Er attending Dr. Cuadra to follow up on the transvaginal sonogram/UA/Type and screen. (Filiberto Toure) 02/12/18 03:06 Transvaginal US reviewed, shows: IMPRESSION: No intrauterine is identified. Differential diagnosis includes spontaneous , very early intrauterine , and ectopic . Advise serial beta HCG levels and follow up pelvic obstetrical ultrasound to assess for viability and exclude an ectopic . (Giovany Cuadra) - Lab Interpretations Lab Results: 02/12/18 01:10 02/12/18 01:10 Lab Results 02/12/18 02:50: Blood Type Confirm A POSITIVE 02/12/18 02:26: Blood Type A POSITIVE, Antibody Screen Negative, BBK History Checked No verified bt 02/12/18 02:26: Urine Color Yellow, Urine Appearance Sl cloudy, Urine pH 6.0, Ur Specific [place] 1.010, Urine Protein 30 H, Urine Glucose (UA) Negative, Urine Ketones Negative, Urine Blood Large H, Urine Nitrate Negative, Urine Bilirubin Negative, Urine Urobilinogen 0.2, Ur Leukocyte Esterase Small H, Urine RBC 10 - 15, Urine WBC 1 - 3, Ur Epithelial Cells 6 - 8, Urine Bacteria Rare 02/12/18 01:10: WBC 10.5 D, RBC 4.02, Hgb 12.0, Hct 36.3, MCV 90.3, MCH 29.9, MCHC 33.1, RDW 12.5, Plt Count 215, MPV 11.5 H, Gran % 69.5 H, Lymph % (Auto) 22.3, [place] % (Auto) 6.6 H, Eos % (Auto) 1.4 L, Baso % (Auto) 0.2, Gran # 7.28 H , Lymph # (Auto) 2.3, [place] # (Auto) 0.7 H, Eos # (Auto) 0.2, Baso # (Auto) 0.02 02/12/18 01:10: Beta HCG, Quant 7485.20 H 02/12/18 01:10: Sodium 141, Potassium 4.3, Chloride 104, Carbon Dioxide 25, Anion Gap 17, BUN 11, Creatinine 0.5 L, Est GFR ( Amer) > 60, Est GFR ( Non-Af Amer) > 60, Random Glucose 93, Calcium 9.4, Total Bilirubin 0.3, AST 36 D, ALT 60 H, Alkaline Phosphatase 69, Total Protein 7.7, Albumin 4.6, Globulin 3.1, Albumin/Globulin Ratio 1.5 - RAD Interpretation Radiology Orders: 02/12/18 00:51 OB TRANSVAGINAL [US] Stat - Medication Orders Current Medication Orders: Discontinued Medications Acetaminophen (Tylenol 325mg Tab) 650 mg PO STAT STA Stop: 02/12/18 00:52 Last Admin: 02/12/18 02:25 Dose: 650 mg Sodium Chloride (Sodium Chloride 0.9%) 1,000 mls @ 999 mls/hr IV .Q1H1M STA Stop: 02/12/18 01:51 Last Admin: 02/12/18 02:25 Dose: 999 mls/hr eMAR Start Stop Document 02/12/18 02:25 IT (Rec: 02/12/18 02:25 IT [id number]) Intravenous Solution Start Date 02/12/18 Start Time 02:25 - PA / SPECIFICATIONS CHECKER / Resident Statement LYNETTE has reviewed & agrees with the documentation as recorded. <Filiberto Toure - Last Filed: 02/12/18 02:16> - PA / SPECIFICATIONS CHECKER / Resident Statement LYNETTE has reviewed & agrees with the documentation as recorded. LYNETTE has examined the patient and agrees with the treatment plan. <Giovany Cuadra - Last Filed: 02/12/18 04:34> Disposition/Present on Arrival - Present on Arrival Any Indicators Present on Arrival: No History of DVT/PE: No History of Uncontrolled Diabetes: No Urinary Catheter: No History of Decub. Ulcer: No History Surgical Site Infection Following: None - Disposition Have Diagnosis and Disposition been Completed?: Yes Disposition Time: 02:17 <Filiberto Toure - Last Filed: 02/12/18 02:16> - Present on Arrival Any Indicators Present on Arrival: No - Disposition Have Diagnosis and Disposition been Completed?: Yes Disposition Time: 04:32 Patient Plan: Discharge <Giovany Cuadra - Last Filed: 02/12/18 04:34> - Disposition Diagnosis: , Vaginal bleeding Disposition: HOME/ ROUTINE Patient Problems: Current Active Problems Problem Status Onset Acute Vaginal bleeding Acute Condition: GOOD Additional Instructions: Rest/no strenuous physical activity/must follow up with your youth nutritional monitor on Sunday as scheduled/if any worsening symptoms return to the emergency room Referrals: Yani Manning MD [Primary Care Provider] - Follow up with primary
[2018-02-12 00:38] VITALS: BMI 27.4
[2018-02-12 00:46] VITALS: RESP 16
[2018-02-12] MEDS ORDERED: Sodium Chloride 0.9% 1,000 ML IV STA (00:51)
[2018-02-12 01:28] LABS: BASO # 0.02 K/mm3 (0.0-2.0); BASO % 0.2 % (0.0-3.0); EOS # 0.2 (0.0-0.7); EOS % 1.4 % (1.5-5.0); GRAN # 7.28 (1.4-6.5); GRAN % 69.5 % (50.0-68.0); LYMPH # 2.3 (1.2-3.4); LYMPH % 22.3 % (22.0-35.0); MEAN CELL VOLUME 90.3 fl (80.0-105.0); MEAN CORPUSCULAR HEMOGLOBIN 29.9 pg (25.0-35.0); MEAN CORPUSCULAR HGB CONC 33.1 g/dl (31.0-37.0); MEAN PLATELET VOLUME 11.5 fl (7.0-11.0); MONO # 0.7 (0.1-0.6); MONO % 6.6 % (1.0-6.0); RBC 4.02 10^6/uL (3.5-6.1); RED CELL DISTRIBUTION WIDTH 12.5 % (11.5-14.5); WHITE BLOOD COUNT 10.5 10^3/ul (4.5-11.0)
[2018-02-12 01:50] LABS: ALB/GLOB RATIO 1.5 (1.1-1.8)
[2018-02-12 02:11] LABS: ALBUMIN 4.6 g/dL (3.0-4.8); ALT/SGPT 60 U/L (7-56); AST/SGOT 36 U/L (14-36); BLOOD UREA NITROGEN 11 mg/dL (7-21); CALCIUM 9.4 mg/dL (8.4-10.5); GFR AFRICAN-AMERICAN > 60; GFR NON-AFRICAN AMERICAN > 60
[2018-02-12 02:41] LABS: URINE BILIRUBIN NEGATIVE (NEGATIVE); URINE BLOOD LARGE (NEGATIVE); URINE GLUCOSE (UA) NEGATIVE (NEGATIVE); URINE LEUKOCYTE ESTERASE SMALL Leu/uL (NEGATIVE); URINE PROTEIN 30 mg/dL (<30 mg/dL); URINE UROBILINOGEN 0.2 E.U./dL (<1 E.U./dL)
[2018-02-12 02:50] LABS: URINE APPEARANCE SL CLOUDY (CLEAR); URINE COLOR YELLOW (YELLOW)
[2018-02-12 03:24] LABS: URINE BACTERIA RARE (NEG)
[2018-02-12 04:43] VITALS: BP 125/72; PULSE 89; TEMP 98.2; O2SAT 100
--- NOTE | 2018-02-12 08:55 | US ---
PROCEDURE: OB Pelvic Ultrasound HISTORY: vaginal bleeding, cramp, COMPARISON: None available. FINDINGS: UTERUS: No intrauterine gestational sac identified. Endometrium measures 12 mm in width. No endometrial fluid. No evidence of retained products of conception. Uterus measures 8.9 x 4.4 x 5.0 cm. No mass CERVIX: Unremarkable RIGHT OVARY: Measures 3.7 x 2.3 x 2.6 cm. No mass. Normal flow. LEFT OVARY: Measures 2.1 x 2.1 x 2.3 cm. No mass. Normal flow. FREE FLUID: None. OTHER FINDINGS: None. IMPRESSION: No intrauterine gestation identified. Cannot exclude ectopic gestation on the basis of this examination, in the absence of an intrauterine gestational sac. Correlate with serial beta HCG evaluation and transvaginal pelvic ultrasound. The preliminary findings for this examination were reported by zlien at 2:44 a.m. on 02/12/2018. There is concurrence of this report with the preliminary findings.
== END 2018-02-12 04:43 | disposition home or self-care (01) ==
LOC: ED 00:26
DX: O46.8X9 Other antepartum hemorrhage, unspecified trimester (principal); Z3A.00 Weeks of gestation of pregnancy not specified
CPT/HCPCS: 76817; 80053; 81001; 84702; 85025; 86850; 86900; 87086; 99283; J7030